=== PATIENT | female | born 1985 | race African-American/Black ===

== ENCOUNTER → 2024-10-14 | Emergency (ER) | payer SELFPAY ==
[~2024-10-14] VITALS: Ht 160 cm; Wt 49.8 kg
[2024-10-14 19:40] VITALS: BP 131/85; TEMP 97.8; O2SAT 97
== END | disposition left against medical advice (07) ==
LOC: M ED 19:33
DX: Z53.21 Procedure and treatment not carried out due to patient leaving prior to being seen by health care provider (principal)

== ENCOUNTER → 2025-03-23 | Outpatient (CLI) | payer OTHER | LOC: M PLAIMG 08:54 | PROVIDERS: ATTEND Nurse Practitioner Primary Care | DX: R51.9 Headache, unspecified (principal) ==